=== PATIENT | male | born 1965 | race Asian ===

== ENCOUNTER → 2018-04-23 | Outpatient (CLI) | payer MEDICAID, OTHER ==
[~2018-04-23] MED LIST: ACET325T14 PO; ALPR0.254 PO; ATOR10TA9 PO; CHOL500015 PO; GUAI177L4 PO; IBUP200T64 PO; LEVO112T2 PO; METH10TA6 PO; OMEP-110 PO; OXYC-302 PO; POTA1SOL4 PO; PROP20TA PO; REGADENOSON 0.4 MG/5 ML SYRINGE ONE
== END | disposition home or self-care (01) ==
LOC: CFH 07:31
PROVIDERS: ATTEND Internal Medicine Cardiovascular Disease
DX: R07.89 Other chest pain (principal); I10 Essential (primary) hypertension; E78.5 Hyperlipidemia, unspecified
CPT/HCPCS: 78452; 93017; A9502; J2785